=== PATIENT | female | born 1970 | race African-American/Black ===

== ENCOUNTER 2016-08-22 21:34 | Emergency (ER) | payer BC ==
--- NOTE | ~2016-08-22 | EKG ---
PATIENT: VENANCIO CASTRO UNIT #: [id number] Ventricular Rate: 82 BPM Atrial Rate: 82 BPM P-R Interval: 142 ms QRS Duration: 84 ms Q-T Interval: 376 ms QTC Calculation(Bezet): 439 ms P Bucks: 46 degrees Calculated R Bucks: 20 degrees Calculated T Bucks: 17 degrees Diagnosis Line: Normal sinus rhythm Diagnosis Line: Poor R wave progression questionable lead position Diagnosis Line: or body habitus Diagnosis Line: Borderline ECG Diagnosis Line: When compared with ECG of 04-AUG-2015 14:05, Diagnosis Line: No significant change was found Diagnosis Line: Confirmed by CINDY JESUS MD ([id number]) on 08/24/2016 Diagnosis Line: 5:38:02 AM INTERPRETING MD: EDIN LOCKWOOD
--- NOTE | ~2016-08-22 | CT2 ---
[facility] A Service of [facility] RADIOLOGY TEXT RESULTS PATIENT: VENANCIO CASTRO LOCATION: [facility] : 66 UNIT #: [id number] AGE: [address]: Deni Velasquez MD SEX: F ORDER DR: [id number] [facility] [address]. [place], [place] [address] [id number] MR#: [id number] Acc #: [id number] NAME: VENANCIO CASTRO. : 1970 SEX: F STUDY DATE/TIME: 08/23/2016 0:36 UNIT: RO ROOM: STUDY DESCRIPTION: CT Abd and Pelv W Cont Attending Physician: Deni Velasquez M.D. Ordering Physician: Deni Velasquez M.D. Primary Care Physician: Mi Huertas MEDICAL IMAGING REPORT This report is preliminary unless electronic signature is present EXAM CT abdomen and pelvis with contrast INDICATION Frequent urination. Abdominal bloating for the past week. PROCEDURE Contrast-enhanced CT of the abdomen and pelvis. This CT exam was performed with one or more of the following radiation dose reduction techniques: automatic exposure control, adjustment of mA and/or kV according to patient size, and iterative reconstruction. COMPARISON None. FINDINGS ABDOMEN WITH CONTRAST: Included lung bases clear. Nonspecific hypoenhancing lesion posterior right hepatic lobe measures 1.8 cm. The spleen, adrenal glands, pancreas, and gallbladder unremarkable. 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 The bowel loops are nondilated. Appendix is normal. Bowel malrotation with the small bowel on the right, colon the left. PELVIS WITH CONTRAST: A 3.7 cm left adnexal dermoid. Previous hysterectomy. No pelvic fluid. No aggressive-appearing bone lesion. IMPRESSION 1. No clearly acute finding. 2. A 1.8 cm low attenuation posterior right hepatic lobe lesion can be characterized on a nonemergent abdominal MRI or liver protocol CT if [facility] A Service of [facility] RADIOLOGY TEXT RESULTS PATIENT: VENANCIO CASTRO LOCATION: [facility] : 66 UNIT #: [id number] AGE: [address]: Deni Velasquez MD SEX: F ORDER DR: desired clinically. 3. Left renal angiomyolipoma. 4. Bowel malrotation but no acute findings. 5. Left adnexal dermoid. Dictated by... Harsha Coronado M.D. THIS IS AN ELECTRONICALLY VERIFIED REPORT Harsha Coronado M.D. at 08/23/2016 10:01 PM ROLY/huang TD: 08/23/2016 02:00 JOB #: [id number] MEDICAL IMAGING REPORT Page 1 of 1 COPY
[~2016-08-22 21:34] MED LIST: ALDACTONE100 MG PO; BACLOFEN10 MG PO; BEN GAY GREA60 GM CR EXT; BUSPIRONE HCL10 M2 PO; CETIRIZINE HCL10 MG PO; CLARITIN10 M2 PO; CYMBALTA PO; DULOXETINE PO; FOLIC ACID1 MG PO; MELOXICAM15 MG PO; METFORMIN HCL500 M1 PO; METHOTREXATE2.5 MG PO; NAPHAZOLINE HCL; NEURONTIN600 MG PO; OLANZAPINE10 MG PO; OMEPRAZOLE20 M1 PO; PROPRANOLOL HC120 MG PO; SUMATRIPTAN SU100 MG; VITAMIN D250000 UNIT PO; VITAMIN E200 UNIT PO; ZOCOR20 MG PO
[2016-08-22 23:19] LABS: URINE SOURCE CLEAN CATCH
[2016-08-22 23:24] LABS: POC - CKMB <1.0 ng/mL (0.0-7.9); POC - TROPONIN <0.05 ng/mL (<=0.05)
[2016-08-22 23:26] LABS: URINE APPEARANCE CLEAR; URINE BILIRUBIN NEG (NEG); URINE BLOOD NEG (NEG); URINE COLOR YELLOW; URINE GLUCOSE NEG (NEG); URINE KETONE NEG (NEG); URINE LEUKOCYTE ESTERASE NEG (NEG); URINE NITRATE NEG (NEG); URINE PH 6.5 (5-8); URINE PROTEIN NEG (NEG); URINE SPECIFIC GRAVITY 1.018 (1.003-1.035)
[2016-08-22 23:27] LABS: BASOPHIL# 0.1 X10e3 (0-0.3); BASOPHIL% 0.4 % (0-2.5); EOSINOPHIL# 0.1 X10e3 (0-0.7); EOSINOPHIL% 0.7 % (0.0-7.0); HEMATOCRIT 40.4 % (35.0-45.0); HEMOGLOBIN 12.8 gm/dL (12.0-16.0); LYMPHOCYTE# 2.2 X10e3 (1.0-3.5); LYMPHOCYTE% 18.2 % (17.0-45.0); MEAN CORPUSCULAR HEMOGLOBIN 21.9 PG (28-34); MEAN CORPUSCULAR HGB CONC 31.7 g/dL (30-36); MONOCYTE# 0.9 X10e3 (0-1.0); NEUTROPHIL% 73.7 % (40-75); PLATELET COUNT 284 X10e3 (140-420); RED BLOOD COUNT 5.86 X10e (3.90-5.30); RED CELL DISTRIBUTION WIDTH 16.2 % (11.0-15.5); WHITE BLOOD COUNT 12.2 X10e3 (4.0-10.5)
[2016-08-22 23:28] LABS: DIFF IND NO
[2016-08-22 23:49] LABS: CULTURE INDICATED? NO
[2016-08-22 23:59] LABS: ALBUMIN SERUM 4.4 g/dL (3.5-5.0); ALKALINE PHOSPHATASE 69 U/L (32-92); ALT (SGPT) 36 U/L (10-40); AMYLASE 22 U/L (0-46); AST (SGOT) 22 U/L (10-42); BILIRUBIN, DIRECT <0.1 mg/dL (0.0-0.2); BILIRUBIN,TOTAL 0.1 mg/dL (0.2-2.0); BLOOD UREA NITROGEN 13 mg/dL (9-23); CALCIUM SERUM 9.3 mg/dL (8.4-10.2); CARBON DIOXIDE 28 mmol/L (22-31); CHLORIDE 99 mmol/L (100-111); GLOM FILT RATE Estimated 77.2 mL/min (>60); GLUCOSE FASTING 108 mg/dL (70-110); LIPASE 28 U/L (22-51); POTASSIUM 3.5 mmol/L (3.5-5.1); PROTEIN TOTAL SERUM 7.1 g/dL (6.0-8.3); SODIUM 136 mmol/L (135-145)
== END 2016-08-23 02:14 | disposition home or self-care (01) ==
LOC: CED 21:34
PROVIDERS: Emergency Medicine
DX: R10.12 Left upper quadrant pain (principal); R35.0 Frequency of micturition; E11.9 Type 2 diabetes mellitus without complications
CPT/HCPCS: 36415; 74177; 80048; 80076; 81003; 82150; 82553; 83690; 84484; 84703; 85025; 93005; 96361; 96374; 99284; J2405; Q9967